=== PATIENT | female | born 1995 | race Caucasian/White ===

== ENCOUNTER → 2016-12-27 | Outpatient (CLI) | payer BC | LOC: VAS 16:20 | DX: R07.9 Chest pain, unspecified (principal); R06.00 Dyspnea, unspecified; R00.2 Palpitations ==

== ENCOUNTER → 2016-12-28 | Outpatient (CLI) | payer BC | LOC: CARDREHAB 08:52 | DX: I49.3 Ventricular premature depolarization (principal) | CPT/HCPCS: A9500 ==